=== PATIENT | female | born 1955 | race Hispanic/Latino ===

== ENCOUNTER 2018-05-28 21:29 | Inpatient (IN) | payer MEDICARE, OTHER ==
[~2018-05-28] VITALS: Ht 157.5 cm; Wt 64.0 kg
[2018-05-28] MEDS ORDERED: SODIUM CHLORIDE 0.9% 1000ML 1,000 ML IV STA (21:54)
[2018-05-28] MEDS ORDERED: MEPERIDINE HCL INJ 50 MG/ML INJ IV STA (21:54)
[2018-05-28] MEDS ORDERED: MORPHINE SULFATE INJ 4 MG/ML INJ IV STA (21:57)
[2018-05-28] MEDS ORDERED: ONDANSETRON HCL INJ 2 MG/ML VIAL IV ONE (22:00)
[2018-05-28] MEDS ORDERED: FAMOTIDINE 20 MG/2 ML VIAL IV ONE (22:00)
--- NOTE | 2018-05-28 23:38 | Diagnostic Imaging Report ---
EXAM: CT Abdomen and Pelvis WITH contrast INDICATION: Abdominal pain, nausea and vomiting since this morning COMPARISON: None. TECHNIQUE: Abdomen and pelvis were scanned utilizing a multidetector helical scanner from the lung base to the pubic symphysis after administration of IV contrast. Coronal and sagittal reformations were obtained. Routine protocol was performed. Scan was performed when during portal venous phase. IV CONTRAST: 100 mL of Isovue-370 ORAL CONTRAST: Water RADIATION DOSE: Total DLP: 02/23/2030 mGy*cm Estimated effective dose: (DLP x 0.015 x size factor) mSv COMPLICATIONS: None FINDINGS: LINES and TUBES: None. LOWER THORAX: Unremarkable HEPATOBILIARY: The liver is diffuse hypodense compared to the spleen, consistent with diffuse hepatic diffuse hepatic steatosis. There are a few scattered hypodensities in the liver, likely benign cysts measuring between 1.6 and 1.7 cm. There is intra- and extra- hepatic biliary dilation likely post cholecystectomy reservoir effect. GALLBLADDER: There are cholecystectomy clips. SPLEEN: No splenomegaly. PANCREAS: No focal masses or ductal dilatation. ADRENALS: No adrenal nodules KIDNEYS/URETERS: Kidneys enhance symmetrically. No hydronephrosis. Single subcentimeter hypodensity in the inferior pole of the left kidney measuring 7 mm in diameter is indeterminate and most likely represents a simple cyst No stones. GI TRACT: Short segment of small bowel appears severely dilated with fecal loaded density within it measuring 3.2 cm in diameter on series 2, image 65, coronal series 301, image 41 . First transition point is visualized in the left lower abdomen on series 2, image 55 . Second transition point visualized on series 2, image 71. Appendix is normal. PELVIC ORGANS/BLADDER: Unremarkable. LYMPH NODES: No lymphadenopathy. VESSELS: There is mild atherosclerotic disease in the aorta and major arterial branches. PERITONEUM / RETROPERITONEUM: No free air or fluid. BONES: There are mild degenerative changes in the lumbar spine. SOFT TISSUES: There are 2 ventral fat and small bowel containing hernias in the region of the umbilicus. Additionally a left-sided fat-containing Spigelian hernia is present on series 2, image 65. IMPRESSION: 1. Segmental small bowel obstruction in the left lower abdomen. 2. There are 2 transition points and the presence of fecaloid density material within the segment is suspicious for closed loop obstruction. Signed by: Dr. Bobby Mas M.D. on 05/28/2018 11:34 PM
[2018-05-28] MEDS ORDERED: PROMETHAZINE HCL (IM) 25 MG/ML VIAL IV PRN (23:45)
[2018-05-28] MEDS ORDERED: ONDANSETRON HCL INJ 2 MG/ML VIAL IV PRN (23:45)
[2018-05-28] MEDS ORDERED: AZTREONAM 2GM/NS 100ML 2 GM in AZTREONAM 2GM/NS 100ML 100 ML IV ONE (23:45)
[2018-05-28] MEDS ORDERED: HYDROMORPHONE 1MG/1ML INJ IV PRN (23:45)
[2018-05-29] VITALS (10 sets, daily range): BP systolic 127–158; BP diastolic 58–71
[2018-05-29] MEDS: SODIUM CHLORIDE 0.9% 1000ML 1,000 ML IV SCH ×4 (00:30→23:44)
--- OUTSIDE RECORDS SUMMARY | 2018-05-29 00:40 | XMS REPORT ---
[facility] Address Unknown Phone Unavailable Care Team Providers Care Ram Press Operator Name Role Phone Abigail DEVI Unavailable Unavailable Problems This patient has no known problems. Allergies, Adverse Reactions, Alerts This patient has no known allergies or adverse reactions. Medications This patient has no known medications. Results Test Description Test Time Test Comments Text Results Atomic Results Result Comments CT ABD/PEL WITH CONTRAST-HOPD 2018-05-28 23:24:00 [place] [address] Patient Name: ELPIDIO TATUM MR #: [id number] : 1955 Age/Sex: 63/F Req #: [id number] Adm Physician: Ordered by: OUMAR DEVI MD Report #: [id number] Location: [facility] Room/Bed: Procedure: [id number] HOPD/CT ABD/PEL WITH CONTRAST-HOPD Exam Date: 05/28/18 Exam Time: 2250 REPORT STATUS: Signed EXAM: CT Abdomen and Pelvis WITH contrast INDICATION: Abdominal pain, nausea and vomiting since this morning COMPARISON: None. TECHNIQUE: Abdomen and pelvis were scanned utilizing a multidetector helical scanner from the lung base to the pubic symphysis after administration of IV contrast. Coronal and sagittal reformations were obtained. Routine protocol was performed. Scan was performed when during portal venous phase. IV CONTRAST: 100 mL of Isovue-370 ORAL CONTRAST: Water RADIATION DOSE: Total DLP: 02/23/2030 mGy*cm Estimated effective dose: (DLP x 0.015 x size factor) mSv COMPLICATIONS: None FINDINGS: LINES and TUBES: None. LOWER THORAX: Unremarkable HEPATOBILIARY: The liver is diffuse hypodense compared to the spleen, consistent with diffuse hepatic diffuse hepatic steatosis. There are a few scattered hypodensities in the liver, likely benign cysts measuring between 1.6 and 1.7 cm. There is intra- and extra- hepatic biliary dilation likely post cholecystectomy reservoir effect. GALLBLADDER: There are cholecystectomy clips. SPLEEN: No splenomegaly. PANCREAS: No focal masses or ductal dilatation. ADRENALS: No adrenal nodules KIDNEYS/URETERS: Kidneys enhance symmetrically. No hydronephrosis. Single subcentimeter hypodensity in the inferior pole of the left kidney measuring 7 mm in diameter is indeterminate and most likely represents a simple cyst No stones. GI TRACT: Short segment of small bowel appears severely dilated with fecal loaded density within it measuring 3.2 cm in diameter on series 2, image 65, coronal series 301, image 41 . First transition point is visualized in the left lower abdomen on series 2, image 55 . Second transition point visualized on series 2, image 71. Appendix is normal. PELVIC ORGANS/BLADDER: Unremarkable. LYMPH NODES: No lymphadenopathy. VESSELS: There is mild atherosclerotic disease in the aorta and major arterial branches. PERITONEUM / RETROPERITONEUM: No free air or fluid. BONES: There are mild degenerative changes in the lumbar spine. SOFT TISSUES: There are 2 ventral fat and small bowel containing hernias in the region of the umbilicus. Additionally a left-sided fat- containing Spigelian hernia is present on series 2, image 65. IMPRESSION: 1. Segmental small bowel obstruction in the left lower abdomen. 2. There are 2 transition points and the presence of fecaloid density material within the segment is suspicious for closed loop obstruction. Signed by: Dr. Bobby Mas M.D. on 05/28/2018 11:34 PM Dictated By: BOBBY CROSS MD Transcribed By: BOBBY on 05/28/188 COPY TO: OUMAR DEVI MD
[2018-05-29] MEDS: METRONIDAZOLE 500MG/NS 100ML IV SCH ×5 (00:45→23:41)
[2018-05-29] MEDS ORDERED: ENALAPRILAT IV INJ 1.25 MG/ML VIAL IV PRN (01:00)
[2018-05-29] MEDS: MORPHINE SULFATE INJ 4 MG/ML INJ IV PRN ×2 (01:00→21:05)
[2018-05-29] MEDS ORDERED: DIPHENHYDRAMINE HCL INJ 50 MG/ML VIAL IV PRN (01:00)
[2018-05-29] MEDS ORDERED: HYDRALAZINE HCL 20 MG/ML VIAL IV PRN (01:00)
--- NOTE | 2018-05-29 01:24 | Diagnostic Imaging Report ---
EXAMINATION: CXR 1 W - [facility] INDICATION: NG tube placement COMPARISON: None FINDINGS: TUBES and LINES: NG tube is visualized along the mediastinum with tip overlying the gastric fundus. LUNGS: Lungs are well inflated. Lungs are clear. There is no evidence of pneumonia or pulmonary edema. PLEURA: No pleural effusion or pneumothorax. HEART AND MEDIASTINUM: The cardiomediastinal silhouette is unremarkable. BONES AND SOFT TISSUES: No acute osseous lesion. Soft tissues are unremarkable. UPPER ABDOMEN: No free air under the diaphragm. IMPRESSION: No acute thoracic abnormality. NG tube tip at the gastric fundus, advancement is recommended Signed by: Dr. Bobby Mas M.D. on 05/29/2018 1:21 AM
[2018-05-29] MEDS ORDERED: AZTREONAM 2GM/NS 100ML 2 GM in AZTREONAM 2GM/NS 100ML 100 ML IV ONE (03:00)
[2018-05-29] MEDS ORDERED: ACETAMINOPHEN325 M1 PO (04:02)
[2018-05-29] MEDS ORDERED: VITAMIN D400 UNIT PO (04:02)
[2018-05-29] MEDS ORDERED: OMEGA-3 FISH1000 MG PO (04:02)
[2018-05-29 06:39] LABS: BASOPHILS % 0.2 % (0.0-1.0); EOSINOPHILS % 0.3 % (0.0-6.0); HEMATOCRIT 40.4 % (34.2-44.1); HEMOGLOBIN 13.4 g/dL (12.0-16.0); LYMPHOCYTES # (AUTO) 1.4 (1.0-3.2); MEAN CORPUSCULAR HEMOGLOBIN 30.7 pg (28-32); MEAN CORPUSCULAR HGB CONC 33.2 g/dL (31-35); MEAN CORPUSCULAR VOLUME 92.4 fL (81-99); MONOCYTES # (AUTO) 0.5 (0.2-0.8); MONOCYTES % 5.7 % (4.4-11.3); NEUTROPHILS # (AUTO) 7.4 (2.1-6.9); NEUTROPHILS % 78.5 % (38.7-80.0); PLATELET COUNT 324 x10e3/uL (140-360); RED BLOOD COUNT 4.37 x10e6/uL (3.6-5.1); RED CELL DISTRIBUTION WIDTH 13.3 % (11.7-14.4)
--- NOTE | 2018-05-29 06:45 | Diagnostic Imaging Report ---
EXAM: ABDOMEN 2 VIEW DATE: 05/29/2018 5:00 AM Time stamp on exam: 6: 15 AM INDICATION: Small bowel obstruction COMPARISON: CT of the abdomen and pelvis on 05/28/2018 FINDINGS: LINES/TUBES: NG tube is visualized in good position with tip at the level of the duodenum BOWEL PATTERN: Again, short segment of small bowel appears dilated in the region of the ventral hernia at the level of L5 and S1. SOFT TISSUES: No abnormal calcifications. No mass effect. Surgical clips compatible with prior cholecystectomy LUNG BASES: Lung bases are clear BONES: No acute findings. IMPRESSION: 1. NG tube in good position. 2. Mid abdominal distention of short segment of the small bowel remains concerning for closed loop obstruction as mentioned in recent CT of the abdomen and pelvis Signed by: Dr. Bobby Mas M.D. on 05/29/2018 6:40 AM
[2018-05-29 06:54] LABS: ANION GAP 16.1 mmol/L (8-16); BLOOD UREA NITROGEN 12 mg/dL (7-26); BUN/CREATININE RATIO 17 (6-25); CALCIUM 9.1 mg/dL (8.4-10.2); CARBON DIOXIDE 22 mmol/L (22-29); CHLORIDE 108 mmol/L (98-107); CREATININE, SERUM 0.69 mg/dL (0.57-1.11); EST GLOMERULAR FILTRATION RATE > 60 ML/MIN (60-); GLUCOSE 120 mg/dL (74-118); POTASSIUM 4.1 mmol/L (3.5-5.1); SODIUM 142 mmol/L (136-145)
[2018-05-29] MEDS: AZTREONAM 2GM/NS 100ML 2 GM in AZTREONAM 2GM/NS 100ML 100 ML IV SCH (11:59)
[2018-05-29] MEDS: FAMOTIDINE 20 MG/2 ML VIAL IV SCH ×2 (13:15→17:47)
--- NOTE | 2018-05-29 15:01 | History and Physical ---
CHIEF COMPLAINT: Nausea and vomiting. HISTORY OF PRESENT ILLNESS: This is a 63-year-old woman who presents to [facility] emergency room with sudden onset of abdominal pain accompanied by nausea and vomiting. In the emergency room, patient was found to have a white blood cell count of 13,000 with 88% segmented neutrophils. Patient's liver enzymes and electrolytes were all within normal limits. The patient underwent a CT of abdomen and pelvis with contrast in the emergency room that revealed segmental small bowel obstruction in the left lower abdomen. The CT of the abdomen and pelvis actually revealed two transition points and the presence of fecaloid density material within the segment suspicious for close loop obstruction. Patient is admitted for further evaluation and treatment. REVIEW OF SYSTEMS GENERAL: Weight is stable. No fever or chills. HEENT: No headache or double vision. CARDIOVASCULAR: No chest pain or cough. GI: Intense abdominal pain accompanied by nausea and vomiting occurring suddenly yesterday. No diarrhea. No constipation. : No UTI symptoms. NEUROMUSCULAR: No limb weakness or numbness. ALLERGIES: PENICILLIN. PAST MEDICAL HISTORY 1. Prediabetes. 2. Hypertensive heart disease. 3. History of multiple abdominal surgeries. HOME MEDICATIONS 1. Acetaminophen 500 mg every 6 hours p.r.n. for pain. 2. Vitamin D3 400 units daily. 3. [place] 3 fish oil 1000 mg daily. FAMILY HISTORY: Mother with hypertension. Father with type 2 diabetes mellitus and hypothyroidism. SURGICAL HISTORY 1. Colonic resection with diverted colotomy placement in 2008. 2. Colostomy reversal in 2010. 3. Breast lesion resection twice (both benign). 4. Laparoscopic cholecystectomy. 5. Bilateral oophorectomy resulting in colonic perforation in 2008 (this incident resulted in colonic resection and colostomy placement). SOCIAL HISTORY: The woman is single. She lives with her sister and [id number]. No history of tobacco or alcohol use. She is unemployed. PHYSICAL EXAMINATION GENERAL: She is awake, alert, fully oriented and very pleasant upon exam. Family members at bedside. VITALS: Blood pressure is 144/56, pulse 72, respiratory rate 18, height is 5 feet 1 inch, weight 138 pounds, BMI is 26. Temperature was 98.1. INTEGUMENT: Skin is warm and dry. No pallor or diaphoresis appreciated. HEENT: Moist mucous membranes. The patient has nasogastric tube in place. CARDIOVASCULAR: Regular rate and rhythm. LUNGS: No rales. No rhonchi or wheezing. ABDOMEN: Soft, nontender. She has evidence of a large exploratory laparotomy scar, which was well healed. She has a well healed scar in her left lower quadrant area, which was the site of her colostomy bag. Patient has hypoactive bowel sounds. No rebound or guarding. No masses appreciated. EXTREMITIES: No edema or deformity. NEUROLOGIC: Intact. IMPRESSION 1. Small bowel obstruction. 2. History of multiple abdominal surgeries. 3. Intra-abdominal adhesions, likely. 4. Hypertension. 5. Prediabetes. RECOMMENDATIONS 1. We have ordered daily abdominal x-rays (flat and upright). 2. Gentle intravenous fluids. 3. Follow electrolytes and white blood cell count. 4. Intravenous antibiotics. 5. Acute nasogastric tube in place. 6. Nothing by mouth. 7. We will follow up general surgery's recommendation. 8. Total time spent 50 minutes in the care of the patient. Job#: [id number] ELENITA WOLFE
[2018-05-30] VITALS (7 sets, daily range): BP systolic 122–149; BP diastolic 60–67
[2018-05-30] MEDS: AZTREONAM 2GM/NS 100ML 2 GM in AZTREONAM 2GM/NS 100ML 100 ML IV SCH ×2 (01:10→13:29)
[2018-05-30 05:38] LABS: BASOPHILS % 0.5 % (0.0-1.0); EOSINOPHILS # (AUTO) 0.1 (0.0-0.4); EOSINOPHILS % 1.3 % (0.0-6.0); HEMATOCRIT 37.7 % (34.2-44.1); HEMOGLOBIN 12.4 g/dL (12.0-16.0); LYMPHOCYTES # (AUTO) 1.6 (1.0-3.2); LYMPHOCYTES % 25.6 % (18.0-39.1); MEAN CORPUSCULAR HEMOGLOBIN 30.7 pg (28-32); MEAN CORPUSCULAR HGB CONC 32.9 g/dL (31-35); MEAN CORPUSCULAR VOLUME 93.3 fL (81-99); MONOCYTES # (AUTO) 0.5 (0.2-0.8); MONOCYTES % 8.4 % (4.4-11.3); PLATELET COUNT 277 x10e3/uL (140-360); RED BLOOD COUNT 4.04 x10e6/uL (3.6-5.1); RED CELL DISTRIBUTION WIDTH 13.3 % (11.7-14.4)
[2018-05-30 05:56] LABS: ALANINE AMINOTRANSFERASE 16 IU/L (0-55); ALBUMIN 3.3 g/dL (3.5-5.0); ALBUMIN/GLOBULIN RATIO 1.1 (0.8-2.0); ALKALINE PHOSPHATASE 48 IU/L (40-150); ANION GAP 14.6 mmol/L (8-16); BLOOD UREA NITROGEN 12 mg/dL (7-26); BUN/CREATININE RATIO 15 (6-25); CALCIUM 8.7 mg/dL (8.4-10.2); CARBON DIOXIDE 23 mmol/L (22-29); CHLORIDE 107 mmol/L (98-107); CREATININE, SERUM 0.79 mg/dL (0.57-1.11); EST GLOMERULAR FILTRATION RATE > 60 ML/MIN (60-); GLUCOSE 100 mg/dL (74-118); POTASSIUM 3.6 mmol/L (3.5-5.1); SODIUM 141 mmol/L (136-145)
[2018-05-30] MEDS: METRONIDAZOLE 500MG/NS 100ML IV SCH ×3 (06:31→17:31)
--- NOTE | 2018-05-30 06:36 | Diagnostic Imaging Report ---
EXAM: ABDOMEN 2 VIEW DATE: 05/30/2018 7:00 AM Time stamp on exam: 0608 AM INDICATION: Small bowel obstruction COMPARISON: KUB on 05/29/[address] of the abdomen and pelvis on 05/28/2018 FINDINGS: LINES/TUBES: NG tube remains in good position at the level of the duodenum BOWEL PATTERN: No evidence for obstruction. SOFT TISSUES: No abnormal calcifications. No mass effect. LUNG BASES: Lung bases are clear BONES: No acute findings. IMPRESSION: Complete resolution of small bowel distention at the mid abdomen Signed by: Dr. Bobby Mas M.D. on 05/30/2018 6:32 AM
[2018-05-30] MEDS: FAMOTIDINE 20 MG/2 ML VIAL IV SCH ×2 (09:24→17:30)
[2018-05-30] MEDS: SODIUM CHLORIDE 0.9% 1000ML 1,000 ML IV SCH ×2 (09:25→16:30)
[2018-05-31] VITALS (7 sets, daily range): BP systolic 114–125; BP diastolic 55–60
[2018-05-31] MEDS: AZTREONAM 2GM/NS 100ML 2 GM in AZTREONAM 2GM/NS 100ML 100 ML IV SCH ×2 (00:15→13:00)
[2018-05-31] MEDS: METRONIDAZOLE 500MG/NS 100ML IV SCH ×4 (00:24→17:15)
[2018-05-31] MEDS: SODIUM CHLORIDE 0.9% 1000ML 1,000 ML IV SCH (00:24)
[2018-05-31 05:51] LABS: BASOPHILS % 0.4 % (0.0-1.0); EOSINOPHILS # (AUTO) 0.1 (0.0-0.4); EOSINOPHILS % 0.8 % (0.0-6.0); HEMATOCRIT 38.1 % (34.2-44.1); HEMOGLOBIN 12.4 g/dL (12.0-16.0); LYMPHOCYTES # (AUTO) 1.7 (1.0-3.2); LYMPHOCYTES % 23.5 % (18.0-39.1); MEAN CORPUSCULAR HEMOGLOBIN 30.2 pg (28-32); MEAN CORPUSCULAR HGB CONC 32.5 g/dL (31-35); MEAN CORPUSCULAR VOLUME 92.7 fL (81-99); MONOCYTES # (AUTO) 0.6 (0.2-0.8); MONOCYTES % 7.8 % (4.4-11.3); NEUTROPHILS # (AUTO) 4.9 (2.1-6.9); NEUTROPHILS % 67.2 % (38.7-80.0); PLATELET COUNT 293 x10e3/uL (140-360); RED BLOOD COUNT 4.11 x10e6/uL (3.6-5.1); RED CELL DISTRIBUTION WIDTH 12.9 % (11.7-14.4)
[2018-05-31 06:29] LABS: ALANINE AMINOTRANSFERASE 17 IU/L (0-55); ALBUMIN 3.3 g/dL (3.5-5.0); ALBUMIN/GLOBULIN RATIO 1.1 (0.8-2.0); ALKALINE PHOSPHATASE 46 IU/L (40-150); ANION GAP 12.4 mmol/L (8-16); BLOOD UREA NITROGEN 11 mg/dL (7-26); BUN/CREATININE RATIO 17 (6-25); CALCIUM 8.8 mg/dL (8.4-10.2); CARBON DIOXIDE 22 mmol/L (22-29); CHLORIDE 105 mmol/L (98-107); CREATININE, SERUM 0.66 mg/dL (0.57-1.11); EST GLOMERULAR FILTRATION RATE > 60 ML/MIN (60-); GLUCOSE 77 mg/dL (74-118); POTASSIUM 3.4 mmol/L (3.5-5.1); SODIUM 136 mmol/L (136-145)
--- NOTE | 2018-05-31 06:40 | Diagnostic Imaging Report ---
EXAM: ABDOMEN 2 VIEW DATE: 05/31/2018 7:00 AM Time stamp on exam: 0608 AM INDICATION: Resolving small bowel obstruction COMPARISON: KUB on 05/30 an 05/29/[address] of the abdomen and pelvis on 05/28/2018 FINDINGS: LINES/TUBES: Removal of NG tube BOWEL PATTERN: No dilated loops of small or large bowel. SOFT TISSUES: Cholecystectomy clips LUNG BASES/BONES: No acute findings. IMPRESSION: Nonobstructive bowel gas pattern Signed by: Dr Lizbet Walker MD on 05/31/2018 6:37 AM
[2018-05-31] MEDS: FAMOTIDINE 20 MG/2 ML VIAL IV SCH ×2 (08:18→17:15)
[2018-05-31] MEDS: KCL 20MEQ/.9 SOD CHL 1,000 ML IV SCH (10:30)
[2018-06-01] VITALS: BP 96/46
[2018-06-01] MEDS: METRONIDAZOLE 500MG/NS 100ML IV SCH ×2 (00:10→05:39)
[2018-06-01] MEDS: AZTREONAM 2GM/NS 100ML 2 GM in AZTREONAM 2GM/NS 100ML 100 ML IV SCH (00:12)
[2018-06-01] MEDS: KCL 20MEQ/.9 SOD CHL 1,000 ML IV SCH ×2 (01:18→05:39)
[2018-06-01 04:00] VITALS: BP 95/43
[2018-06-01 06:21] LABS: BASOPHILS % 0.7 % (0.0-1.0); EOSINOPHILS # (AUTO) 0.2 (0.0-0.4); EOSINOPHILS % 2.7 % (0.0-6.0); HEMATOCRIT 35.9 % (34.2-44.1); HEMOGLOBIN 11.9 g/dL (12.0-16.0); LYMPHOCYTES # (AUTO) 1.7 (1.0-3.2); LYMPHOCYTES % 30.1 % (18.0-39.1); MEAN CORPUSCULAR HEMOGLOBIN 30.3 pg (28-32); MEAN CORPUSCULAR HGB CONC 33.1 g/dL (31-35); MEAN CORPUSCULAR VOLUME 91.3 fL (81-99); MONOCYTES # (AUTO) 0.6 (0.2-0.8); MONOCYTES % 9.9 % (4.4-11.3); NEUTROPHILS # (AUTO) 3.2 (2.1-6.9); NEUTROPHILS % 56.4 % (38.7-80.0); PLATELET COUNT 299 x10e3/uL (140-360); RED BLOOD COUNT 3.93 x10e6/uL (3.6-5.1); RED CELL DISTRIBUTION WIDTH 13.1 % (11.7-14.4)
[2018-06-01 07:46] LABS: BLOOD UREA NITROGEN 7 mg/dL (7-26); BUN/CREATININE RATIO 11 (6-25); CALCIUM 8.8 mg/dL (8.4-10.2); CARBON DIOXIDE 25 mmol/L (22-29); CHLORIDE 108 mmol/L (98-107); CREATININE, SERUM 0.64 mg/dL (0.57-1.11); EST GLOMERULAR FILTRATION RATE > 60 ML/MIN (60-); GLUCOSE 106 mg/dL (74-118); SODIUM 140 mmol/L (136-145)
[2018-06-01 08:01] VITALS: BP 110/53
[2018-06-01 08:34] VITALS: BP 125/60
[2018-06-01 08:39] VITALS: BP 125/60
[2018-06-01] MEDS: FAMOTIDINE 20 MG/2 ML VIAL IV SCH (09:33)
--- NOTE | 2018-06-01 09:59 | Discharge Summary ---
ADMIT DIAGNOSES 1. Small-bowel obstruction, possible closed loop obstruction. 2. Prediabetes. DISCHARGE DIAGNOSES 1. Small-bowel obstruction, resolved. 2. Prediabetes. HOSPITAL COURSE: This is a 63-year-old woman that was admitted to [facility] with a diagnosis of small-bowel obstruction with possible closed loop obstruction between 2 transition points. The patient's hospitalization was unremarkable. The patient's small-bowel obstruction resolved with conservative measures, which included nasogastric tube placement, intravenous fluids, replacement of electrolytes, and bowel rest. During this hospitalization, the patient was found to have an LDL cholesterol of 72 mg/dL. The patient's hemoglobin A1c was 6.1%. On the day of discharge, the patient's white blood cell count was 5600 with 56% segmented neutrophils. On admission, the patient's white blood cell count was 9300 with 78% neutrophils. The patient's hospitalization was unremarkable. The patient's condition on discharge was stable. The patient was tolerating a regular diet on discharge. The patient had daily abdominal x-rays during this hospitalization, which revealed complete resolution of the small-bowel obstruction. The patient's condition on discharge was stable. DISCHARGE MEDICATIONS 1. Vitamin D3 400 units daily. 2. Fosters-3 fish oil 1000 mg daily. 3. Acetaminophen 500 mg every 6 hours p.r.n. pain. FOLLOWUP INSTRUCTIONS: The patient will follow up with her primary care physician, namely myself, Dr. John Bal, within the next 10-14 days. The patient was told that she could resume a regular diet. JOHN BAL MD Job#: [id number] RI cc:MANUEL PRESTON MD
== END 2018-06-01 10:04 | disposition home or self-care (01) | DRG 390 ==
LOC: FSED 21:29 → ERHOLD 05-29 00:35 → MED/SURG 05-29 02:28
PROVIDERS: ADMIT Internal Medicine; ATTEND Internal Medicine
DX: K56.52 Intestinal adhesions [bands] with complete obstruction (principal); R73.03 Prediabetes; I11.9 Hypertensive heart disease without heart failure; E87.6 Hypokalemia
CPT/HCPCS: 36415; 71045; 74019; 74177; 80048; 80053; 80061; 80076; 81003; 83036; 83690; 85025; 96367; 96376; 99284; J2270; J2405; J7030

== ENCOUNTER → 2018-09-09 | Day surgery (SDC) | payer MEDICARE, OTHER ==
[2018-09-06 09:20] LABS: BASOPHILS % 0.6 % (0.0-1.0); EOSINOPHILS % 0.8 % (0.0-6.0); HEMATOCRIT 40.3 % (34.2-44.1); HEMOGLOBIN 13.4 g/dL (12.0-16.0); LYMPHOCYTES # (AUTO) 1.9 (1.0-3.2); LYMPHOCYTES % 36.5 % (18.0-39.1); MEAN CORPUSCULAR HEMOGLOBIN 30.2 pg (28-32); MEAN CORPUSCULAR HGB CONC 33.3 g/dL (31-35); MONOCYTES # (AUTO) 0.4 (0.2-0.8); MONOCYTES % 6.6 % (4.4-11.3); NEUTROPHILS # (AUTO) 2.9 (2.1-6.9); NEUTROPHILS % 55.3 % (38.7-80.0); PLATELET COUNT 304 x10e3/uL (140-360); RED BLOOD COUNT 4.43 x10e6/uL (3.6-5.1); RED CELL DISTRIBUTION WIDTH 12.7 % (11.7-14.4)
[~2018-09-09] MED LIST: ACETAMINOPHEN325 M1 PO; FENTANYL CITRATE/PF 100MCG/2 ML INJ ONE; LIDOCAINE HCL 2% LOCAL INJ 5 ML SDV VIAL INJ ONE; MIDAZOLAM HCL 2 MG/2 ML VIAL ONE; OMEGA-3 FISH1000 MG PO; PROPOFOL IV EMULSION 10 MG/ML 50 ML VIAL ONE; VITAMIN D400 UNIT PO
[2018-09-09 11:48] VITALS: BP 124/68
--- NOTE | 2018-09-09 12:58 | Operative Report ---
DATE OF PROCEDURE: September 09, 2018 REFERRING PHYSICIAN: Dr. John Bal. PROCEDURES PERFORMED: 1. Esophagogastroduodenoscopy with biopsies. 2. Colonoscopy. INDICATIONS FOR ESOPHAGOGASTRODUODENOSCOPY: Dyspepsia. INDICATIONS FOR COLONOSCOPY: Colorectal cancer screening. MEDICATION: Patient was done under MAC. Please see anesthesiologist's note. PROCEDURE: With the patient in the left lateral decubitus position, the flexible fiberoptic Olympus gastroscope was introduced into the esophagus under direct visualization without any difficulty. There was some patchy erythema noted in the distal esophagus. The scope was then advanced with ease into the stomach. Mucosa overlying the antrum and the body revealed some patchy erythema and mild to moderate edema, and biopsies were obtained and sent to stain for H. pylori. Pylorus appeared to be of normal contour and shape, was intubated with ease, and the scope was advanced all the way to the 2nd portion of the duodenum. Biopsies were obtained from the proximal 2nd portion and the duodenal bulb to rule out sprue. The scope was then withdrawn back into the stomach and retroflexed, and mucosa overlying the fundus and the cardia appeared to be within normal limits. The scope was then straightened out. The stomach was decompressed. The scope was subsequently withdrawn. Patient tolerated the procedure well. IMPRESSION: 1. Distal esophagitis. 2. Gastritis biopsied. Biopsies sent to stain for H. pylori. 3. Rule out sprue. PLAN: Follow up histology. Initiate Protonix 40 mg 1 p.o. q.a.m. a.c. Patient was then turned around and after adequate lubrication of the anal canal, a flexible fiberoptic Olympus colonoscope was inserted into the rectum with ease and advanced all the way to the cecum. It was then withdrawn slowly. Mucosa overlying the cecum, ascending colon, transverse colon appeared to be within normal limits. Diverticular disease was noted to involve the distal descending and the sigmoid colon. The anastomosis was noted at approximately 10 cm from the anal verge, and it was intact. The scope was then retroflexed into the distal rectum and small internal hemorrhoids were noted, none of which was actively bleeding. The scope was then straightened out. The scope was subsequently withdrawn. Patient tolerated procedure well. IMPRESSION: 1. Diverticulosis. 2. Anastomosis at 10 cm from anal verge, intact. 3. Internal hemorrhoids, none actively bleeding. PLAN: Initiate high-fiber low-fat diet. Initiate high-fiber supplement. Patient might benefit from a followup colonoscopy in 10 years. Job#: [id number] EV cc:JOHN BAL MD
== END | disposition home or self-care (01) ==
LOC: OR 08:10
PROVIDERS: ATTEND Internal Medicine Gastroenterology
DX: Z12.11 Encounter for screening for malignant neoplasm of colon (principal); K29.70 Gastritis, unspecified, without bleeding; K21.9 Gastro-esophageal reflux disease without esophagitis; K20.9 Esophagitis, unspecified; K57.30 Diverticulosis of large intestine without perforation or abscess without bleeding; K44.9 Diaphragmatic hernia without obstruction or gangrene; K91.858 Other complications of intestinal pouch; Z98.0 Intestinal bypass and anastomosis status; K64.8 Other hemorrhoids; Z01.810 Encounter for preprocedural cardiovascular examination; Z01.812 Encounter for preprocedural laboratory examination; Z88.0 Allergy status to penicillin; Z88.2 Allergy status to sulfonamides; Z68.27 Body mass index [BMI] 27.0-27.9, adult; Z86.12 Personal history of poliomyelitis
CPT/HCPCS: 43239; G0121; 36415; 45378; 85025; 93005; J2001; J2250

== ENCOUNTER 2018-09-25 16:12 | Inpatient (IN) | payer MEDICARE, OTHER ==
[~2018-09-25] VITALS: Ht 160 cm; Wt 63.2 kg
[~2018-09-25 16:12] MED LIST changes: -FENTANYL CITRATE/PF 100MCG/2 ML INJ ONE; -LIDOCAINE HCL 2% LOCAL INJ 5 ML SDV VIAL INJ ONE; -MIDAZOLAM HCL 2 MG/2 ML VIAL ONE; -PROPOFOL IV EMULSION 10 MG/ML 50 ML VIAL ONE
[2018-09-25] MEDS ORDERED: ONDANSETRON HCL INJ 2MG/ML 2ML 2 MG/ML VIAL IV STA (16:45)
[2018-09-25] MEDS ORDERED: KETOROLAC TROMETHAMINE 30 MG/ML VIAL IV STA (16:46)
[2018-09-25] MEDS ORDERED: FAMOTIDINE 20 MG/2 ML VIAL IV STA (16:46)
[2018-09-25] MEDS ORDERED: SODIUM CHLORIDE 0.9% 1000ML 1,000 ML IV SCH (17:00)
[2018-09-25] MEDS ORDERED: SODIUM CHLORIDE 0.9% 1000ML 1,000 ML IV ONE (17:00)
--- NOTE | 2018-09-25 18:07 | NUR ---
REPORT TO REUBEN URRUTIA
--- NOTE | 2018-09-25 19:46 | Diagnostic Imaging Report ---
EXAM: CT Abdomen and Pelvis WITH contrast INDICATION: Abdominal pain ^[id number] ^1800 COMPARISON: None. TECHNIQUE: Abdomen and pelvis were scanned utilizing a multidetector helical scanner from the lung base to the pubic symphysis after administration of IV contrast. Coronal and sagittal reformations were obtained. Routine protocol was performed. Scan was performed when during portal venous phase. IV CONTRAST: 100 mL of Isovue-370 ORAL CONTRAST: Water COMPLICATIONS: None RADIATION DOSE: Total DLP: 749.2 mGy*cm Estimated effective dose: (DLP x 0.015 x size factor) mSv Dose modulation, iterative reconstruction, and/or weight based adjustment of the mA/kV was utilized to reduce the radiation dose to as low as reasonably achievable. FINDINGS: LINES and TUBES: None. LOWER THORAX: Unremarkable HEPATOBILIARY: Hepatic cyst measure 2.1 cm and 1.6 cm. No biliary ductal dilation. GALLBLADDER: Absent. SPLEEN: No splenomegaly. PANCREAS: No focal masses or ductal dilatation. ADRENALS: No adrenal nodules KIDNEYS/URETERS: Kidneys enhance symmetrically. No hydronephrosis. Left inferior pole 0.6 cm cyst. No stones. GI TRACT: Small bowel obstruction related to a lower abdominal ventral hernia. Hernia sac measures 8 x 4.5 x 6.9 cm with 3 x 3.1 cm neck and contains fluid along the inferior margin. A minimally distended bowel loop measuring 2.5 cm in diameter (series 2 image 70) has two transition points at the ventral hernia neck, suspicious for an additional developing closed loop obstruction. More superiorly, a second small bowel containing hernia contains the upstream dilated bowel loops. This hernia measures 6.7 x 4.1 x 7 cm with 4.8 x 5.4 cm neck. Left lateral abdominal Spigelian fat containing hernia. Colonic diverticulosis without diverticulitis. Rectosigmoid anastomotic sutures. Appendix is normal. PELVIC ORGANS/BLADDER: Endometrium thickened expected for postmenopausal state measuring 9 mm in thickness. LYMPH NODES: No lymphadenopathy. VESSELS: Unremarkable. PERITONEUM / RETROPERITONEUM: No free air. Small amount of fluid within the inferior ventral hernia sac. BONES: There are degenerative changes in the lumbar spine. SOFT TISSUES: Lower abdominal ventral hernia with IMPRESSION: Mild small bowel obstruction with transition point at a ventral hernia. A minimally distended bowel loop has two transition points at the ventral hernia neck, suspicious for a developing closed loop obstruction. Additional small bowel containing and fat containing ventral hernias. Endometrial thickness, greater than expected for postmenopausal state. Recommend nonemergent pelvic ultrasound for further evaluation. Signed by: DR. Blane Lauren MD on 09/25/2018 7:42 PM
[2018-09-25] MEDS: D5.45%NS/KCL 20MEQ 1,000 ML IV SCH (21:02)
[2018-09-25] MEDS ORDERED: ONDANSETRON HCL INJ 2MG/ML 2ML 2 MG/ML VIAL IV PRN (21:15)
--- NOTE | 2018-09-25 22:01 | NUR ---
SURYA WALSH RN, TAKING PATIENT, NOTIFIED OF NGT PLACEMENT NEEDING TO BE VERIFIED VIA XRAY, HEARD IN ABDOMEN BUT SOUNDING DISTAL, VERIFY PLACEMENT BEFORE USING BC MAY NEED TO ADVANCE
--- NOTE | 2018-09-25 22:05 | NUR ---
REPORT RECEIVED FROM REUBEN THAT NGT WAS INSERTED BUT MET RESISTANCE AND WHEN CHECKED FOR PLACEMENT SOUND WAS DISTAL. SUGGESTING FOR X RAY TO VERIFY PLACEMENT BEFORE USE. X-RAY WAS NOT DONE FROM THE E.R.
--- NOTE | 2018-09-25 22:14 | NUR ---
RECEIVED PATIENT FROM ER VIA STRETCHER ALERT AND ORIENTED. NGT TUBE TO LEFT NOSTRIL. MADE COMFORTABLE IN BED. CALL LIGHT IN REACH.
--- NOTE | 2018-09-25 22:30 | NUR ---
PAGELandon BAL AND DR. Martha PRESTON.
[2018-09-25 22:35] VITALS: BP 174/77
--- NOTE | 2018-09-25 22:45 | NUR ---
CALL RECEIVED FROM DR. PRESTON NOTIFIED OF THE CONSULTATION. STATED HE IS AWARE OF THE CONSULTATION AND WANTS NGT IN PLACE. NOTIFIED MD THAT NGT IS ALREADY IN PLACE. DR. PRESTON STATED NO NEED FOR X RAY TO VERIFY THE PLACEMENT OF THE NGT TUBE. 2 NURSES CAN VERIFY PLACEMENT OF THE TUBE. WILL VERIFY WITH CHARGE NURSE.
--- NOTE | 2018-09-25 23:20 | NUR ---
NO CALL BACK RECEIVED FROM DR. Christine LUND COVERING FOR DR. BAL. NGT PLACEMENT VERIFIED WITH CHARGE NURSE. NG TUBE IS IN PLACE PER AUSCULTATION.
[2018-09-26] VITALS (9 sets, daily range): BP systolic 120–174; BP diastolic 58–77
--- NOTE | 2018-09-26 00:42 | Diagnostic Imaging Report ---
EXAM: ABDOMEN-1VIEW (KUB) DATE: 09/25/2018 11:57 PM INDICATION: NG tube placement COMPARISON: CT abdomen and pelvis 09/25/2018 FINDINGS: LINES/TUBES: Nasogastric tube tip and sidehole project over the gastric body. BOWEL PATTERN: Mildly dilated small bowel loop in the left abdomen measuring 3.4 cm in diameter in keeping with mild obstruction. SOFT TISSUES: No abnormal calcifications. No mass effect. Also cystectomy clips. LUNG BASES: No consolidations. BONES: No acute findings. IMPRESSION: Interval placement of NG tube with tip overlying the gastric body. Signed by: DR. Blane Lauren MD on 09/26/2018 12:39 AM
[2018-09-26] MEDS: D5.45%NS/KCL 20MEQ 1,000 ML IV SCH ×3 (05:10→16:38)
[2018-09-26 06:04] LABS: BASOPHILS % 0.5 % (0.0-1.0); EOSINOPHILS # (AUTO) 0.1 (0.0-0.4); EOSINOPHILS % 1.2 % (0.0-6.0); HEMATOCRIT 38.2 % (34.2-44.1); HEMOGLOBIN 12.8 g/dL (12.0-16.0); LYMPHOCYTES # (AUTO) 1.8 (1.0-3.2); LYMPHOCYTES % 29.4 % (18.0-39.1); MEAN CORPUSCULAR HEMOGLOBIN 29.9 pg (28-32); MEAN CORPUSCULAR HGB CONC 33.5 g/dL (31-35); MEAN CORPUSCULAR VOLUME 89.3 fL (81-99); MONOCYTES # (AUTO) 0.5 (0.2-0.8); MONOCYTES % 8.3 % (4.4-11.3); NEUTROPHILS # (AUTO) 3.7 (2.1-6.9); NEUTROPHILS % 60.4 % (38.7-80.0); PLATELET COUNT 307 x10e3/uL (140-360); RED BLOOD COUNT 4.28 x10e6/uL (3.6-5.1)
--- NOTE | 2018-09-26 06:35 | NUR ---
SPOKE WITH DR. Christine LUND COVERING FOR DR. BAL. NEW ORDERS RECEIVED.
[2018-09-26 06:40] LABS: ALANINE AMINOTRANSFERASE 12 IU/L (0-55); ALBUMIN 3.4 g/dL (3.5-5.0); ALBUMIN/GLOBULIN RATIO 1.2 (0.8-2.0); ALKALINE PHOSPHATASE 48 IU/L (40-150); ANION GAP 11.2 mmol/L (8-16); BLOOD UREA NITROGEN 7 mg/dL (7-26); BUN/CREATININE RATIO 11 (6-25); CALCIUM 8.8 mg/dL (8.4-10.2); CARBON DIOXIDE 26 mmol/L (22-29); CHLORIDE 107 mmol/L (98-107); CREATININE, SERUM 0.65 mg/dL (0.57-1.11); EST GLOMERULAR FILTRATION RATE > 60 ML/MIN (60-); GLUCOSE 118 mg/dL (74-118); POTASSIUM 4.2 mmol/L (3.5-5.1); SODIUM 140 mmol/L (136-145)
[2018-09-26] MEDS ORDERED: HYDRALAZINE HCL 20 MG/ML VIAL IV PRN (07:15)
--- NOTE | 2018-09-26 07:31 | NUR ---
REPORT GIVEN TO ONCOMING NURSE.
[2018-09-26] MEDS: PANTOPRAZOLE 40 MG 10ML VIAL IV SCH (09:17)
[2018-09-26] MEDS: ACETAMINOPHEN 1000 MG/100 ML IV PRN ×2 (09:18→19:33)
--- NOTE | 2018-09-26 09:25 | Consultation ---
DATE OF CONSULTATION: September 26, 2018 REASON FOR CONSULTATION: Small-bowel obstruction. The patient is a pleasant 63-year-old female who has a history of multiple abdominal surgeries in the past, including Greyson's procedure, colostomy closure, cholecystectomy, bilateral oophorectomy, and hysterectomy admitted complaining of midabdominal pain that developed yesterday. The pain developed after eating at home. There was no diarrhea. The patient was initially seen in the [facility] emergency room where she was admitted for further care. She had an NG tube placement. Currently, the patient is feeling better. She is passing gas. The CT scan performed upon admission showed a small-bowel obstruction and a ventral hernia. PAST MEDICAL HISTORY: Essentially unremarkable except for prediabetes and high blood pressure. ALLERGIES: SHE IS ALLERGIC TO PENICILLIN. REVIEW OF SYSTEMS: The patient at this point feels well. She denies any abdominal pain. She is passing flatus. PHYSICAL EXAMINATION GENERAL: Reveals a 63-year-old female whose main complaint is pain in the left side of the face, which she had previous placement of an NG tube last night at the [facility] emergency room. HEENT: Unremarkable. LUNGS: Clear. HEART: Reveals sinus rhythm. ABDOMEN: Soft and nontender. It is protuberant. There is a midline scar in the lower abdomen. EXTREMITIES: Reveals no clubbing, cyanosis or edema. Admission laboratory revealed normal white count with normal electrolytes. ASSESSMENT: Small-bowel obstruction with ventral hernia without any evidence of ischemia. PLAN: At this point, the patient is responding well to conservative treatment. She will continue to be treated with nasogastric tube decompression, IV fluids and serial x-rays. At this point, there is no need for any emergency surgical intervention.However becuase of the recurrentnatur of the obstruction and risk for volvulus she will be schedulled for repair of ventrla hernia during this hospitaliztion. Thank you very much for the courtesy of this consultation. Job#: [id number] RAMÓN WOLFE
--- NOTE | 2018-09-26 09:53 | Diagnostic Imaging Report ---
Exam: Abdominal film Clinical History: Small bowel obstruction Comparison: KUB earlier 07/26/2019 DISCUSSION: Enteric tube tip is unchanged, projecting over the gastric body. No dilated, air-filled loops of bowel or lenore pneumoperitoneum on the upright radiograph. No mass effect or organomegaly. Regional skeletal structures are intact. IMPRESSION: Stable appearance of enteric tube, with the tip projecting over the gastric body. Small bowel dilatation has slightly improved relative to 0014 hours. Signed by: Dr. Mario Costa M.D. on 09/26/2018 9:49 AM
--- NOTE | 2018-09-26 10:30 | History and Physical ---
CHIEF COMPLAINT: Abdominal pain and nausea. HISTORY OF PRESENT ILLNESS: This is a 63-year-old woman who presents to [facility] emergency room with the sudden onset of nonradiating midepigastric pain with intense nausea, but no vomiting. The patient denied any diarrhea or constipation. The patient states in fact yesterday she had multiple bowel movements without any difficulty. The patient denied any melena or hematochezia. The patient unfortunately has a history of recurrent small-bowel obstruction. She also has a history of ventral hernia. In the emergency room, the patient underwent a CT of the abdomen and pelvis with intravenous contrast that revealed mild small-bowel obstruction with transition point at the ventral hernia. The CT of the abdomen and pelvis revealed a minimally distended bowel loop with 2 transition points at the ventral hernia neck suspicious for developing closed loop obstruction. The patient had a repeat abdominal x-ray this morning. According to her surgeon, namely Dr. Fredy Montes, the small-bowel obstruction was resolving. The patient denies any nausea or abdominal pain today. The patient states she also moved her bowels today. In the emergency room, the patient had blood work done and complete blood count and comprehensive metabolic profile were all within normal limits. The patient was actually admitted with the exact same diagnosis in May of 2018. The patient states that 2 weeks ago she had undergone an ECG and colonoscopy. EGD revealed distal esophagitis and gastritis, and biopsies were sent for Helicobacter pylori. The colonoscopy revealed diverticulosis and anastomosis at 10 cm from the anal verge that was intact. The pathology from the EGD did not reveal any evidence of celiac sprue or Helicobacter organisms. PAST MEDICAL HISTORY 1. Recurrent small-bowel obstruction. 2. Prediabetes. 3. Hypertension. 4. Multiple abdominal surgeries. HOME MEDICATIONS 1. Acetaminophen 500 mg every 6 hours p.r.n. pain. 2. Vitamin D3 400 units daily. 3. [place]ville-3 fish oil 1000 mg daily. FAMILY HISTORY: Mother with hypertension. Father with type 2 diabetes mellitus and hypothyroidism. SURGICAL HISTORY 1. Colonic resection with diverting colostomy placement in 2008. 2. Colostomy reversal in 2010. 3. Breast lesion resection twice (both benign). 4. Laparoscopic cholecystectomy. 5. Bilateral oophorectomy resulting in colonic perforation in 2008 ( this incident resulted in colonic resection and colostomy placement). SOCIAL HISTORY: The woman is single and she lives with her sister and [id number]. No history of tobacco or alcohol use. The patient is currently unemployed. ALLERGIES 1. PENICILLIN. 2. SULFA. PHYSICAL EXAMINATION GENERAL: She is awake, alert and fully oriented. She is very pleasant and cooperative on exam. VITALS: Height is 5 feet 3 inches, weight is 136 pounds, BMI is 24. Blood pressure 138/62, pulse 58, respiratory rate is 18, temperature 97, oxygen saturation 98% on room air. INTEGUMENT: Skin is warm and dry. No pallor, jaundice or diaphoresis. HEENT: Anicteric sclerae. Moist mucous membranes. The patient has an NG tube in place. NECK: Supple. CARDIOVASCULAR: Regular rate and rhythm with an S4 gallop. LUNGS: No rales. No rhonchi or wheezes. ABDOMEN: Soft. Normal bowel sounds. Nontender. EXTREMITIES: No edema or deformities. NEUROLOGIC: Intact. IMPRESSION 1. Small-bowel obstruction. 2. Ventral hernia. 3. Recurrent episodes of small-bowel obstruction. 4. History of multiple abdominal surgeries. 5. Hypertension. PLAN 1. Nothing by mouth. 2. Keep nasogastric tube in place. 3. Appreciate surgical consult. 4. Follow electrolytes. 5. Follow up clinically. 6. Will order serial abdominal x-rays. I spent 40 minutes in the care of this patient. Job#: [id number] RAMÓN
--- NOTE | 2018-09-26 10:41 | NUR ---
EDUCATED ABOUT IMM, SIGNED, FILED IN CHART, WITH COPY LEFT WITH FAMILY AT BEDSIDE.
--- NOTE | 2018-09-26 13:45 | NUR ---
CASE MANAGEMENT ASSESSMENT Production Support Manager to bedside to discuss plan of care with patient/family. CM/SW role and care transitions discussed. Anticipated discharge plan discussed along with duration of care. CM/SW discussed patients right to make decisions in care. CM/SW work hours given. Sister Meeta Dinh at bedside, pt directed CM to speak to her sister Patient lives: with sister Admit/Transfer: thru ED Hospital/ER visits since last admit: last hospitalization May 2018 for SBO POA/Emergency contact: sister Meeta Dinh [phone], brother Bobby Dinh [phone] Current/Previous Home Health: none PCP/Follow-up Care: Dr. Freedman - pt advised to follow up with PCP within 7 days or as instructed by Current/Previous DME: walker, wheelchair Medications (referring to index hospitalization or the first time you were in the hospital) a. Were changes made in your medications when you were in the hospital on May 2018? no changes b. Did you understand the changes? n/a c. Were you able to obtain your new medications right away? n/a d. Were you able to take your medications like the doctor wanted you to? n/a e. Did the hospital give you an accurate, easy to understand list of medications when you left? n/a Scale of 1-10 how comfortable does patient feel with disease management in outpatient settin Other Services: none Employment Status: unemployed Areas of Concerns: none Referral Needs: none Education Needs: medical management IMM/AGUILA given and signed (if applicable): IMM was given Goal for discharge: home independently CM/SW left business card at the bedside with contact information. Name and number was also written on the patients whiteboard. Patient verbalized understanding of discussion. CM will follow-up with ongoing discharge and transition of care needs.
--- NOTE | 2018-09-26 17:38 | NUR ---
md alexis johnson rounded this afternoon. told pt she will have abd sx on wednesday. no orders on computer yet.
[2018-09-27] VITALS (7 sets, daily range): BP systolic 131–156; BP diastolic 59–68
[2018-09-27] MEDS: D5.45%NS/KCL 20MEQ 1,000 ML IV SCH ×4 (00:35→21:02)
[2018-09-27 06:23] LABS: BASOPHILS % 0.5 % (0.0-1.0); EOSINOPHILS # (AUTO) 0.1 (0.0-0.4); EOSINOPHILS % 1.4 % (0.0-6.0); HEMATOCRIT 39.3 % (34.2-44.1); HEMOGLOBIN 12.7 g/dL (12.0-16.0); LYMPHOCYTES # (AUTO) 1.5 (1.0-3.2); LYMPHOCYTES % 24.5 % (18.0-39.1); MEAN CORPUSCULAR HEMOGLOBIN 29.7 pg (28-32); MEAN CORPUSCULAR HGB CONC 32.3 g/dL (31-35); MONOCYTES # (AUTO) 0.5 (0.2-0.8); MONOCYTES % 7.6 % (4.4-11.3); NEUTROPHILS # (AUTO) 4.1 (2.1-6.9); NEUTROPHILS % 65.8 % (38.7-80.0); PLATELET COUNT 327 x10e3/uL (140-360); RED BLOOD COUNT 4.27 x10e6/uL (3.6-5.1)
--- NOTE | 2018-09-27 06:54 | NUR ---
REPORT GIVEN TO ONCOMING NURSE.PT WENT FOR XRAY AT THIS TIME IN STABLE CONDITION.
[2018-09-27 07:16] LABS: ALANINE AMINOTRANSFERASE 12 IU/L (0-55); ALBUMIN 3.4 g/dL (3.5-5.0); ALBUMIN/GLOBULIN RATIO 1.1 (0.8-2.0); ALKALINE PHOSPHATASE 51 IU/L (40-150); ANION GAP 11.2 mmol/L (8-16); BLOOD UREA NITROGEN 5 mg/dL (7-26); BUN/CREATININE RATIO 7 (6-25); CARBON DIOXIDE 26 mmol/L (22-29); CHLORIDE 108 mmol/L (98-107); EST GLOMERULAR FILTRATION RATE > 60 ML/MIN (60-); GLUCOSE 131 mg/dL (74-118); POTASSIUM 4.2 mmol/L (3.5-5.1); SODIUM 141 mmol/L (136-145)
--- NOTE | 2018-09-27 07:28 | Diagnostic Imaging Report ---
Exam: KUB - 2 views Clinical History: Small bowel obstruction Comparison: KUB 09/26/18. DISCUSSION: Enteric tube tip is unchanged, projecting over the gastric body. Non-specific bowel gas pattern with paucity of air in the small bowel. Small amount of air and stool is seen in the proximal colon. No evidence of pneumoperitoneum. No abnormal calcifications. No acute osseous abnormality. IMPRESSION: Stable appearance of enteric tube, with the tip projecting over the gastric body. Non-specific bowel gas pattern with paucity of air in the small bowel. Signed by: Dr. Nelson Johnosn MD on 09/27/2018 7:25 AM
[2018-09-27] MEDS: CHLORASEPTIC SPRAY 177 ML BTL MM PRN (08:37)
[2018-09-27] MEDS: PANTOPRAZOLE 40 MG 10ML VIAL IV SCH (08:37)
[2018-09-27] MEDS: CEFOXITIN 1GM/ NS 50ML 50 ML IV SCH (18:22)
[2018-09-28] VITALS: BP 131/61
[2018-09-28] MEDS: CEFOXITIN 1GM/ NS 50ML 50 ML IV SCH ×3 (00:08→12:00)
[2018-09-28 04:00] VITALS: BP 132/63
[2018-09-28] MEDS: D5.45%NS/KCL 20MEQ 1,000 ML IV SCH (05:25)
[2018-09-28] MEDS ORDERED: BACITRACIN 50,000 UNIT VIAL ONE ×2 (06:59→09:37)
[2018-09-28] MEDS ORDERED: BUPIVACAINE 0.5%/EPI 30 ML SDV INJ ONE (06:59)
[2018-09-28] MEDS ORDERED: BUPIVACAINE LIPOSOME/PF 266 MG/20 ML IJ ONE (07:00)
--- NOTE | 2018-09-28 07:00 | NUR ---
PT TO OR AT THIS TIME.
--- NOTE | 2018-09-28 07:00 | NUR ---
Pt taken to surgery at this time in stable condition.report given to oncoming nurse.
[2018-09-28] MEDS: PANTOPRAZOLE 40 MG 10ML VIAL IV SCH ×2 (09:00→14:24)
[2018-09-28] MEDS ORDERED: HYDROMORPHONE 2MG/ML 2 MG/ML ML ONE (09:42)
--- NOTE | 2018-09-28 10:18 | NUR ---
WENT TO SEE PT, IN PROCEDURE UNABLE TO REMIND ABOUT IMM AT TIME, LEFT COPY AT BEDSIDE WILL RETURN LATER TO GET SIGNATURE.
[2018-09-28] MEDS ORDERED: NEOSTIGMINE 1 MG/ML 10ML VIAL ONE (12:25)
[2018-09-28] MEDS ORDERED: SODIUM CHLORIDE 0.9% 250ML IRRIG IR SCH (12:45)
[2018-09-28] MEDS ORDERED: KETOROLAC TROMETHAMINE 30 MG/ML VIAL IV PRN (12:45)
[2018-09-28] MEDS ORDERED: NALOXONE HCL INJ 0.4 MG/ML AMP IV PRN (12:45)
[2018-09-28] MEDS ORDERED: HYDROMORPHONE 0.2MG/ML-SOD CHL 30ML PCA SYRINGE IV PRN (12:45)
[2018-09-28] MEDS ORDERED: ONDANSETRON HCL INJ 2MG/ML 2ML 2 MG/ML VIAL IV PRN (12:45)
[2018-09-28] MEDS ORDERED: ACETAMINOPHEN 1000 MG/100 ML IV PRN (12:45)
[2018-09-28] MEDS ORDERED: HYDROMORPHONE 0.2MG/ML-SOD CHL 30ML PCA SYRINGE IV ONE (13:06)
--- NOTE | 2018-09-28 14:10 | NUR ---
RECEIVED PT RETURNING FROM PROCEDURE. PT DROWSY EASY TO WAKE ANSWERS QUESTIONS APPROPRIATELY. NGT CONNECTED TO CLWS. IVF AND ACID SUPERVISOR PUMP CONTINUED PER ORDERS. SCD IN PLACE BILAT. DRESSING TO ABD WITH FOAM TAPE CLEAN DRY AND INTACT. X2 MARILOU NOTED. CALL LIGHT AND ACID SUPERVISOR CONTROL WITHIN REACH. FAMILY AT BEDSIDE. INSTRUCTED TO CALL FOR ASSISTANCE. WILL CONTINUE TO MONITOR.
[2018-09-28] MEDS: DEXTROSE 5%/LACTATED RINGERS 1,000 ML IV SCH (14:23)
[2018-09-28] MEDS: SODIUM CHLORIDE 0.9% 250ML IRRIG IR SCH ×3 (14:24→20:59)
--- NOTE | 2018-09-28 14:24 | Operative Report ---
DATE OF PROCEDURE: 09/27/2018 PREOPERATIVE DIAGNOSES: Ventral hernias with recurrent small bowel obstruction episodes, multiple previous abdominal surgeries. POSTOPERATIVE DIAGNOSES: Ventral hernia x3, adhesions, resolved small bowel obstruction. PROCEDURE PERFORMED: Scar revision, exploratory laparotomy, extensive lysis of adhesions, repair of ventral hernias including a stomal hernia with bilateral component relaxation and placement of mesh. ANESTHESIA: General endotracheal. ESTIMATED BLOOD LOSS: 200 to 300 mL. DRAINS: 10 mL Allen-Webb drain. INDICATION AND FINDINGS: The patient is a pleasant 63-year-old female with several admissions for small bowel obstructions. Because of this, she was scheduled for surgery. Preoperatively, she understood as well as the family that this would be a long difficult procedure and the complications such as infection, recurrent mesh infection, blood clot, and pneumonia could occur, but given the fact that she was having recurrent episodes some of which were associated with partial closed loop obstruction, it was decided to proceed with the repair. This patient preoperatively had had two CAT scans that revealed two ventral hernias with obstruction and possibly closed loop obstruction. The hernias were located one slightly above the umbilicus, the other one was located inferior to the umbilicus along the midline from previous Greyson procedure as well as colostomy closure in the past. The patient also had undergone laparoscopic cholecystectomy in the past. Neither of her CAT scans previously performed revealed the stomal hernia at the colostomy site in the left medial aspect of the abdomen. During the dissection of the soft tissues of the left side of the midline in order to relax the rectus to allow closure of the fascia, we found that she had herniation of the colon through the colostomy site. At this point, we had to go lateral to that and then relax the external oblique aponeurosis to be able to close the wound without any difficulties, on the right side we relaxed the rectus sheath. The stomal hernia was closed initially by placement of PVP Ethicon Proceed ventral patch in the preperitoneal space, and then over that after the fascia was closed, we placed polypropylene mesh to cover the entire abdominal wall. DESCRIPTION OF PROCEDURE: With the patient lying on the operation table in the supine position, after administration of general endotracheal anesthesia, she was given prophylactic antibiotics. A Alexis was placed and prepped and draped for exploratory laparotomy as previously described. The old incision was somewhat hypertrophic and we excised that completely revising the scar, and then we continued the dissection through the subcutaneous tissue. We identified the two hernias previously described on the CAT scan, one slightly superior to the umbilicus, the other one inferior to that. We performed extensive lysis of adhesions until we were able to clear the abdominal wall from any adhesions as well as internal adhesions and then we were able to place the sutures to secure the mesh. There were two defects, and I felt that it would be easier and better for the patient to connect the two defects and create a large one since they were close to each other to allow access to intraabdominal cavity. After we did that, we completed the dissection of the multiple lysis of adhesions. We excised the attenuated fascia and then we closed the wound by approximating fascia to fascia. There was tension in the closure and we decided to secure a better closure to relax the rectus muscle with a component relaxation. As we were dissecting the soft tissues on the left side of the midline, we came at the level of the colostomy site over the rectus sheath where there was herniation of the colon. This was not suspected. At this point, we reduced the herniation of the colon into the preperitoneal space and then we relaxed the external oblique aponeurosis lateral to the defect. We then placed a PVP small size Ethicon mesh in the preperitoneal space laying it flat against abdominal wall and secured there through the strap with 2-0 Ethibond suture. We then closed the fascia loosely without any problems over that and then this defect was closed with polypropylene mesh. The rectus sheath was relaxed on the right side and then we placed a polypropylene mesh 12 inches sq, cut to appropriate length to cover the entire abdominal wall as well as the previously placed mesh in the stoma site. We secured the mesh initially with several 0-Ethibond sutures. The mesh was laid flat against the primary closure. We placed several 2-0 Ethibond sutures around the periphery of the stoma repair, copiously irrigated the abdominal cavity, copiously irrigated the wound prior to closure as we had also done with intraabdominal cavity. We ascertained that prior to closure of the fascia that there was no evidence of bleeding or bowel injury, none was seen. We drained the wound with 2 Allen-Webb drains that were crisscrossed and brought out through stab wound inferior to the incision and secured them with 2-0 silk, connected it to self suction. We closed the subcutaneous tissues with a combination of 0 chromic and 2-0 Vicryl and the skin was closed with 0 silk and 3-0 silk. Sterile dressing was applied. We put 10 mL of Xylocaine solution on each drain and clamped it for [id number] and then reconnected it to self suction. The patient tolerated the procedure well, was taken to recovery room in stable condition. Sponge and instrument counts were pronounced correct. As previously stated at the end of the case, the daughter was informed of intraoperative findings. MD SANTOSH Latif/SUMIT /[id number]
[2018-09-28] MEDS ORDERED: EPHEDRINE SULFATE INJ 50 MG/10 ML SYR ONE (14:41)
[2018-09-28] MEDS ORDERED: KETOROLAC TROMETHAMINE 30 MG/ML VIAL ONE (14:41)
[2018-09-28] MEDS ORDERED: LIDOCAINE HCL 2% LOCAL INJ 5 ML SDV VIAL INJ ONE (14:41)
[2018-09-28] MEDS ORDERED: PROPOFOL IV EMULSION 10 MG/ML 20 ML VIAL ONE (14:41)
[2018-09-28] MEDS ORDERED: SEVOFLURANE INHAL SOLN 250 ML PEN BTL ONE (14:41)
[2018-09-28] MEDS ORDERED: CEFAZOLIN SOD 1 GM VIAL ONE (14:41)
[2018-09-28] MEDS ORDERED: NEOSTIGMINE 5 MG/5ML SYR ONE (14:41)
[2018-09-28] MEDS ORDERED: ONDANSETRON HCL INJ 2MG/ML 2ML 2 MG/ML VIAL ONE (14:41)
[2018-09-28] MEDS ORDERED: ACETAMINOPHEN 1000 MG/100 ML IV ONE (14:41)
[2018-09-28] MEDS ORDERED: DEXAMETHASONE SOD PHOS INJ 4 MG/ML VIAL ONE (14:41)
[2018-09-28] MEDS ORDERED: ROCURONIUM BROMIDE 10 MG/ML 5ML VIAL ONE (14:41)
[2018-09-28] MEDS ORDERED: GLYCOPYRROLATE INJ 1MG/ 5 ML SYR ONE (14:41)
[2018-09-28] MEDS ORDERED: MIDAZOLAM HCL 2 MG/2 ML VIAL ONE (14:44)
[2018-09-28] MEDS ORDERED: FENTANYL CITRATE/PF 100MCG/2 ML INJ ONE (14:44)
[2018-09-28] MEDS: CEFAZOLIN SOD 1 GM/NS 50ML 50 ML IV SCH (17:41)
[2018-09-28 17:42] VITALS: BP 142/64
[2018-09-28 17:55] VITALS: BP 142/64
--- NOTE | 2018-09-28 19:35 | NUR ---
patient received. patient is resting in bed, easy to arouse. Resp even and unlabored. No acute distress noted. Patient denies of any pain or discomfort at this time. Abdominal dressing noted, dry and intact, abdominal binder noted. NG tube to right nare connected to CLWS. IV fluid and TRADE RECRUITER pump noted. call light and TRADE RECRUITER control within reach. instruct to call for assistance. bed low/locked. continue to monitor closely
[2018-09-28 20:00] VITALS: BP 115/53
[2018-09-29] VITALS (11 sets, daily range): BP systolic 115–159; BP diastolic 53–70
[2018-09-29] MEDS: DEXTROSE 5%/LACTATED RINGERS 1,000 ML IV SCH
[2018-09-29] MEDS: SODIUM CHLORIDE 0.9% 250ML IRRIG IR SCH ×6 (00:43→21:10)
[2018-09-29] MEDS: CEFAZOLIN SOD 1 GM/NS 50ML 50 ML IV SCH ×4 (04:58→17:36)
[2018-09-29 05:48] LABS: BASOPHILS % 0.1 % (0.0-1.0); HEMATOCRIT 31.8 % (34.2-44.1); HEMOGLOBIN 10.6 g/dL (12.0-16.0); LYMPHOCYTES # (AUTO) 1.6 (1.0-3.2); LYMPHOCYTES % 13.5 % (18.0-39.1); MEAN CORPUSCULAR HGB CONC 33.3 g/dL (31-35); MEAN CORPUSCULAR VOLUME 90.1 fL (81-99); MONOCYTES % 8.2 % (4.4-11.3); NEUTROPHILS # (AUTO) 9.3 (2.1-6.9); NEUTROPHILS % 77.9 % (38.7-80.0); PLATELET COUNT 274 x10e3/uL (140-360); RED BLOOD COUNT 3.53 x10e6/uL (3.6-5.1)
[2018-09-29 06:13] LABS: ALANINE AMINOTRANSFERASE 46 IU/L (0-55); ALBUMIN 2.8 g/dL (3.5-5.0); ALBUMIN/GLOBULIN RATIO 0.9 (0.8-2.0); ALKALINE PHOSPHATASE 46 IU/L (40-150); ANION GAP 11.6 mmol/L (8-16); BLOOD UREA NITROGEN 7 mg/dL (7-26); BUN/CREATININE RATIO 10 (6-25); CALCIUM 8.7 mg/dL (8.4-10.2); CARBON DIOXIDE 25 mmol/L (22-29); CHLORIDE 105 mmol/L (98-107); CREATININE, SERUM 0.68 mg/dL (0.57-1.11); EST GLOMERULAR FILTRATION RATE > 60 ML/MIN (60-); GLUCOSE 116 mg/dL (74-118); POTASSIUM 3.6 mmol/L (3.5-5.1); SODIUM 138 mmol/L (136-145)
[2018-09-29] MEDS: D5.45%NS/KCL 20MEQ 1,000 ML IV SCH ×2 (09:02→17:35)
--- NOTE | 2018-09-29 09:02 | NUR ---
ASSISTED PT TO SIT IN CHAIR AT THIS TIME. CALL LIGHT AND PIERCING MILL OPERATOR CONTROL WITHIN REACH. INSTRUCTED TO CALL FOR ASSISTANCE.
--- NOTE | 2018-09-29 10:13 | NUR ---
PT ASSISTED BACK TO BED. MITER GRINDER OPERATOR CONTROL AND CALL LIGHT WITHIN REACH.
[2018-09-29] MEDS ORDERED: SODIUM CHLORIDE 0.9% 1000ML 1,000 ML IV SCH (12:45)
[2018-09-29] MEDS: PANTOPRAZOLE 40 MG 10ML VIAL IV SCH (14:16)
--- NOTE | 2018-09-29 15:19 | NUR ---
PT SAT IN CHAIR FOR ABOUT 30 MINUTES THEN AMBULATED IN HALLWAY. ASSISTED BACK TO BED. CALL LIGHT AND COMPUTER SOFTWARE ENGINEER CONTROL WITHIN REACH. BED LOCKED AND IN LOWEST POSITION. INSTRUCTED TO CALL FOR ASSISTANCE.
--- NOTE | 2018-09-29 22:50 | NUR ---
left hand IV infiltrated. D/c IV, left hand elevated. Start new IV to left AC. Patient tolerated well. Iv fluid infusing
[2018-09-30] VITALS (8 sets, daily range): BP systolic 124–135; BP diastolic 58–62
[2018-09-30] MEDS: D5.45%NS/KCL 20MEQ 1,000 ML IV SCH ×3 (00:48→15:12)
[2018-09-30] MEDS: CEFAZOLIN SOD 1 GM/NS 50ML 50 ML IV SCH ×4 (00:48→17:14)
[2018-09-30] MEDS: SODIUM CHLORIDE 0.9% 250ML IRRIG IR SCH ×6 (01:10→21:42)
[2018-09-30 05:26] LABS: BASOPHILS % 0.3 % (0.0-1.0); EOSINOPHILS % 0.2 % (0.0-6.0); HEMOGLOBIN 10.5 g/dL (12.0-16.0); LYMPHOCYTES # (AUTO) 1.7 (1.0-3.2); LYMPHOCYTES % 16.9 % (18.0-39.1); MEAN CORPUSCULAR HEMOGLOBIN 29.8 pg (28-32); MEAN CORPUSCULAR HGB CONC 32.8 g/dL (31-35); MEAN CORPUSCULAR VOLUME 90.9 fL (81-99); MONOCYTES # (AUTO) 0.8 (0.2-0.8); MONOCYTES % 7.8 % (4.4-11.3); NEUTROPHILS # (AUTO) 7.6 (2.1-6.9); NEUTROPHILS % 74.5 % (38.7-80.0); PLATELET COUNT 263 x10e3/uL (140-360); RED BLOOD COUNT 3.52 x10e6/uL (3.6-5.1); RED CELL DISTRIBUTION WIDTH 13.2 % (11.7-14.4)
[2018-09-30 05:55] LABS: ALANINE AMINOTRANSFERASE 29 IU/L (0-55); ALBUMIN 2.7 g/dL (3.5-5.0); ALBUMIN/GLOBULIN RATIO 0.8 (0.8-2.0); ALKALINE PHOSPHATASE 52 IU/L (40-150); ANION GAP 10.9 mmol/L (8-16); BLOOD UREA NITROGEN < 5 mg/dL (7-26); CALCIUM 9.1 mg/dL (8.4-10.2); CARBON DIOXIDE 29 mmol/L (22-29); CHLORIDE 104 mmol/L (98-107); EST GLOMERULAR FILTRATION RATE > 60 ML/MIN (60-); GLUCOSE 131 mg/dL (74-118); POTASSIUM 3.9 mmol/L (3.5-5.1); SODIUM 140 mmol/L (136-145)
[2018-09-30 05:56] LABS: BUN/CREATININE RATIO 7 (6-25)
--- NOTE | 2018-09-30 06:15 | NUR ---
D/C WOODALL PER MD ORDER. PATIENT IS DUE TO VOID
--- NOTE | 2018-09-30 06:45 | NUR ---
ASSISTED PATIENT TO BSC. PATIENT VOIDED
--- NOTE | 2018-09-30 07:11 | NUR ---
Rcvd patient in report this am. Patient is awake in chair at this time. No s/s of distress noted.
[2018-09-30] MEDS ORDERED: POTASSIUM CHLORIDE 20MEQ/100ML 100 ML IV ONE (08:00)
--- NOTE | 2018-09-30 09:25 | Diagnostic Imaging Report ---
EXAM: CHEST SINGLE (PORTABLE), AP Portable DATE: 09/30/2018 Time stamp on exam: 7:41 AM INDICATION: Fever and cough COMPARISON: 05/29/2018 FINDINGS: LINES/TUBES: Nasogastric tube extends below the diaphragm. LUNGS: Linear subsegmental atelectasis in the left perihilar region is present. Focal increased density in the right upper lobe may represent a developing infiltrate. This was not present on the prior study. PLEURA: No effusions or pneumothorax. HEART AND MEDIASTINUM: Normal size and contour. BONES AND SOFT TISSUES: No acute findings. IMPRESSION: Focal increased density in the right upper lobe suggestive of an early infiltrate. Signed by: Dr. Rl Hannon DO on 09/30/2018 9:22 AM
[2018-09-30] MEDS: PANTOPRAZOLE 40 MG 10ML VIAL IV SCH (13:16)
--- NOTE | 2018-09-30 15:57 | NUR ---
Nutrition Screen Note RD Recommendation for Physician: -Rec advancing to GI soft/ ADA diet as medically appropriate -If GI tract is not ok to use within the next 48hr, rec to initiate PN -Consult RD if needed Plan of Care: RD following, monitoring for tolerance and adequacy Nutrition reason for involvement: NPO x 5 days Primary Diagnose(s): SBO PMH: recurrent SBO, ventral hernia, prediabetes, HTN, multiple abdominal surgeries, HTN Ht: 63in Wt: 144.31lb BMI: 25.6kg/m2 IBW: 115lb RD Assessment: (09/30) Chart reviewed. Labs and meds reviewed. 63yo F, who was admitted for abdominal pain. S/p ex-lap and hernia repair on 09/28. POD 2. Visited pt in room who denied significant wt loss, denied decrease in appetite MAGNETIC PROSPECTING SUPERVISOR. Pt denied chewing/swallowing problems and nausea/vomiting. NGT on suction with green drainage. Pt stated I feel my guts are moving but I havent had any BM or gas yet. Pt also reported feeling hungry and eager to advance her diet. Anticipate pt able to meet nutritional need through po intake when diet is advanced. Will cont to monitor. Please consult as needed. Current Diet: NPO x 5 days Malnutrition Evaluation (09/30/2018) The patient does not meet criteria for a specified degree of malnutrition at this time. Will re-evaluate at follow-up as appropriate. Energy intake: <50% of estimated energy requirements for >5 days Weight loss: N/A Fat loss: None Muscle loss: None Supporting Evidence: Fluid accumulation: n/a Functional Status: no changes Diet Education Needs Assessment: Diet education not indicated. Nutrition Care Level: mod Signed: Wendy Lucas, MS, RD, LD
--- NOTE | 2018-09-30 19:01 | NUR ---
RECEIVED PATIENT IN BED AAOX3. NGT TO SUCTION. INSPECTOR CASING PAIN CONTROL BUTTON WITHIN EASY REACH. NO NEEDS AT THIS TIME. CALL LIGHT WITHIN EASY REACH.
--- NOTE | 2018-09-30 20:10 | NUR ---
ASSISTED PATIENT TO BSC.
[2018-10-01] VITALS (8 sets, daily range): BP systolic 131–143; BP diastolic 60–65
[2018-10-01] MEDS: CEFAZOLIN SOD 1 GM/NS 50ML 50 ML IV SCH ×5 (00:22→23:54)
[2018-10-01] MEDS: D5.45%NS/KCL 20MEQ 1,000 ML IV SCH ×4 (00:22→19:44)
[2018-10-01] MEDS: SODIUM CHLORIDE 0.9% 250ML IRRIG IR SCH ×6 (00:30→19:44)
[2018-10-01 09:42] LABS: BLOOD UREA NITROGEN < 5 mg/dL (7-26); CALCIUM 10.1 mg/dL (8.4-10.2); CARBON DIOXIDE 28 mmol/L (22-29); CHLORIDE 102 mmol/L (98-107); CREATININE, SERUM 0.69 mg/dL (0.57-1.11); EST GLOMERULAR FILTRATION RATE > 60 ML/MIN (60-); GLUCOSE 144 mg/dL (74-118); SODIUM 139 mmol/L (136-145)
[2018-10-01 09:44] LABS: BUN/CREATININE RATIO 7 (6-25)
--- NOTE | 2018-10-01 12:04 | NUR ---
FIELD SERVICE ANALYST PUMP DC. WITNESS WAIST WITH ZULLY. PT REPORTS NO PAIN AT THIS TIME.
[2018-10-01] MEDS: HYDROMORPHONE 2MG/ML 2 MG/ML ML IV PRN ×2 (15:13→21:37)
[2018-10-01] MEDS: PANTOPRAZOLE 40 MG 10ML VIAL IV SCH (15:13)
[2018-10-01] MEDS ORDERED: MINOCYCLINE HCL50 MG PO (15:24)
--- NOTE | 2018-10-01 21:23 | NUR ---
NGT REMOVED PER ORDERS, TUBE INTACT. PATIENT TOLERATED PROCEDURE WELL. SOME DISCOMFORT VOICED, PRN PAIN MEDICATION ADMINISTERED. INSTRUCTED PATIENT TO NOTIFY RN IF NAUSEA OR VOMITING OCCURS, PATIENT VERBALIZED UNDERSTANDING. BED LOCKED AND IN LOWEST POSITION, CALL LIGHT WITHIN EASY REACH. WILL CONTINUE TO MONITOR THE PATIENT CLOSELY.
[2018-10-01] MEDS: BISACODYL 10 MG SUPP PR SCH (21:34)
[2018-10-02] VITALS (8 sets, daily range): BP systolic 106–134; BP diastolic 53–62
[2018-10-02] MEDS: SODIUM CHLORIDE 0.9% 250ML IRRIG IR SCH ×2 (01:00→05:00)
[2018-10-02] MEDS: CEFAZOLIN SOD 1 GM/NS 50ML 50 ML IV SCH ×3 (05:15→17:34)
[2018-10-02] MEDS: D5.45%NS/KCL 20MEQ 1,000 ML IV SCH ×2 (05:15→16:38)
[2018-10-02 06:05] LABS: BASOPHILS % 0.3 % (0.0-1.0); EOSINOPHILS # (AUTO) 0.1 (0.0-0.4); HEMATOCRIT 31.5 % (34.2-44.1); HEMOGLOBIN 10.4 g/dL (12.0-16.0); LYMPHOCYTES # (AUTO) 1.5 (1.0-3.2); LYMPHOCYTES % 23.9 % (18.0-39.1); MEAN CORPUSCULAR HEMOGLOBIN 29.9 pg (28-32); MEAN CORPUSCULAR VOLUME 90.5 fL (81-99); MONOCYTES # (AUTO) 0.6 (0.2-0.8); MONOCYTES % 8.7 % (4.4-11.3); NEUTROPHILS # (AUTO) 4.2 (2.1-6.9); NEUTROPHILS % 64.8 % (38.7-80.0); PLATELET COUNT 331 x10e3/uL (140-360); RED BLOOD COUNT 3.48 x10e6/uL (3.6-5.1); RED CELL DISTRIBUTION WIDTH 12.8 % (11.7-14.4)
[2018-10-02 06:26] LABS: ANION GAP 8.8 mmol/L (8-16); BLOOD UREA NITROGEN 5 mg/dL (7-26); BUN/CREATININE RATIO 9 (6-25); CALCIUM 8.9 mg/dL (8.4-10.2); CARBON DIOXIDE 27 mmol/L (22-29); CHLORIDE 106 mmol/L (98-107); CREATININE, SERUM 0.57 mg/dL (0.57-1.11); EST GLOMERULAR FILTRATION RATE > 60 ML/MIN (60-); GLUCOSE 130 mg/dL (74-118); POTASSIUM 3.8 mmol/L (3.5-5.1); SODIUM 138 mmol/L (136-145)
[2018-10-02] MEDS: BISACODYL 10 MG SUPP PR SCH ×2 (08:15→21:37)
[2018-10-02] MEDS: CHLORASEPTIC SPRAY 177 ML BTL MM PRN (13:09)
[2018-10-02] MEDS: PANTOPRAZOLE 40 MG 10ML VIAL IV SCH (14:13)
--- NOTE | 2018-10-02 14:50 | NUR ---
Visit made by the Spiritual Care Department Pastoral Visitor, Raul Herron. PV provided pastoral presence, hospitality, and supportive listening. Pastoral Visitor informed pt/family of the scope of Floor Sweeper Services and availability. ARCHIE CABRERA Aerial Planting And Cultivation Manager Spiritual Care Department O: [phone] Pager: [phone] ([phone] number calling from)
--- NOTE | 2018-10-02 23:15 | NUR ---
PATIENT C/O BURNING SENSATION TO THE IV SITE, IV REMOVED WITH TIP INTACT. IV #20 GAUGE INSERTED TO THE RIGHT AC, PROCEDURE TOLERATED WELL, IV FLUID INFUSING ORDERED. PATIENT DENIES ABDOMINAL PAIN, CALL LIGHT WITHIN EASY REACH, SHE'S INSTRUCTED TO CALL FOR ASSISTANCE NEEDED.
[2018-10-03] VITALS (7 sets, daily range): BP systolic 106–129; BP diastolic 53–60
[2018-10-03] MEDS: CEFAZOLIN SOD 1 GM/NS 50ML 50 ML IV SCH ×4 (00:19→16:52)
[2018-10-03] MEDS: D5.45%NS/KCL 20MEQ 1,000 ML IV SCH (03:45)
--- NOTE | 2018-10-03 03:50 | NUR ---
PATIENT ASSISTED TO THE RESTROOM, SHE'S INSTRUCTED TO CALL FOR ASSISTANCE UPON COMPLETION SO THAT SHE CAN BE ASSISTED BACK TO BED.
[2018-10-03 06:28] LABS: BASOPHILS % 0.8 % (0.0-1.0); EOSINOPHILS # (AUTO) 0.2 (0.0-0.4); EOSINOPHILS % 3.6 % (0.0-6.0); HEMATOCRIT 31.9 % (34.2-44.1); HEMOGLOBIN 10.3 g/dL (12.0-16.0); LYMPHOCYTES # (AUTO) 1.6 (1.0-3.2); LYMPHOCYTES % 29.7 % (18.0-39.1); MEAN CORPUSCULAR HEMOGLOBIN 29.4 pg (28-32); MEAN CORPUSCULAR HGB CONC 32.3 g/dL (31-35); MEAN CORPUSCULAR VOLUME 91.1 fL (81-99); MONOCYTES # (AUTO) 0.5 (0.2-0.8); NEUTROPHILS # (AUTO) 2.9 (2.1-6.9); NEUTROPHILS % 55.5 % (38.7-80.0); PLATELET COUNT 357 x10e3/uL (140-360); RED CELL DISTRIBUTION WIDTH 12.7 % (11.7-14.4)
[2018-10-03 06:52] LABS: BLOOD UREA NITROGEN < 5 mg/dL (7-26); CALCIUM 9.7 mg/dL (8.4-10.2); CARBON DIOXIDE 25 mmol/L (22-29); CHLORIDE 105 mmol/L (98-107); CREATININE, SERUM 0.58 mg/dL (0.57-1.11); EST GLOMERULAR FILTRATION RATE > 60 ML/MIN (60-); GLUCOSE 136 mg/dL (74-118); SODIUM 137 mmol/L (136-145)
[2018-10-03 06:57] LABS: BUN/CREATININE RATIO 9 (6-25)
[2018-10-03] MEDS: BISACODYL 10 MG SUPP PR SCH (08:00)
[2018-10-03] MEDS ORDERED: HYDROMORPHONE 2MG/ML 2 MG/ML ML IV PRN (09:30)
[2018-10-03] MEDS ORDERED: HYDROCODONE/APAP 7.5MG-325MG 1 EA TAB PO PRN (09:30)
[2018-10-03] MEDS ORDERED: BISACODYL 10 MG SUPP PR ONE (10:00)
--- NOTE | 2018-10-03 10:01 | NUR ---
EDUCATED ABOUT IMM, SIGNED, FILED IN CHART, WITH COPY LEFT WITH FAMILY AT BEDSIDE.
[2018-10-03] MEDS: PANTOPRAZOLE 40 MG 10ML VIAL IV SCH (14:04)
[2018-10-04] VITALS: BP 114/53
[2018-10-04] MEDS: CEFAZOLIN SOD 1 GM/NS 50ML 50 ML IV SCH ×3 (00:18→11:37)
--- NOTE | 2018-10-04 00:18 | NUR ---
PATIENT ASSISTED TO THE RESTROOM TO VOID, SHE'S NOW BACK IN BED WITHOUT DISTRESS AND SHE DENIES ABDOMINAL PAIN. CALL LIGHT WITHIN EASY REACH, INSTRUCTED TO CALL FOR ASSISTANCE NEEDED.
[2018-10-04 04:00] VITALS: BP 113/53
--- NOTE | 2018-10-04 05:23 | NUR ---
NO RESPIRATORY DISTRESS OBSERVED, PATIENT DENIES PAIN. SHE'S ASSISTED TO THE RESTROOM TO VOID, SHE'S TOLD TO CALL FOR ASSISTANCE UPON COMPLETION SO THAT SHE CAN BE ASSISTED BACK TO THE BED.
[2018-10-04 08:02] VITALS: BP 130/60
[2018-10-04 09:57] VITALS: BP 130/60
[2018-10-04 13:21] VITALS: BP 113/52
[2018-10-04] MEDS: PANTOPRAZOLE 40 MG 10ML VIAL IV SCH (13:32)
--- NOTE | 2018-10-04 13:32 | NUR ---
RIGHT AC IV D/C AND PRESSURE DRESSING APPLIED. DISCHARGE INSTRUCTIONS AND PRESCRIPTION GIVEN PT VERBALIZED UNDERSTANDING. PT AWAITING RIDE HOME.
--- NOTE | 2018-10-05 07:16 | Discharge Summary ---
ADMITTING DIAGNOSES: 1. Small bowel obstruction. 2. Ventral hernia. 3. Recurrent episodes of small bowel obstruction from ventral hernias. 4. History of multiple abdominal surgeries. 5. Hypertensive heart disease. DISCHARGE DIAGNOSES: 1. Status post exploratory laparotomy with repair. 2. Ventral hernias as well as extensive lysis of adhesions. 3. Small bowel obstruction, resolved. 4. Prehypertension. HOSPITAL COURSE: This is a 63-year-old woman, who was initially admitted to [facility] with a diagnosis of small bowel obstruction secondary to ventral hernia. The patient actually has a history of recurrent episodes of small bowel obstruction from her ventral hernias and multiple intraperitoneal adhesions. During this hospitalization, she was seen by her general surgeon, Dr. Fredy Montes who performed successful exploratory laparotomy with extensive lysis of adhesions and repair of 3 ventral hernias including the stomal hernia with bilateral component of relaxation and placement of mesh. The patient's hospitalization was unremarkable. Prior to discharge, the patient was tolerating regular diet. One day prior to being discharged, the patient's hemoglobin was 10.3 g/dL. The patient's white blood cell count was 5200 with 55% segmented neutrophils. One day prior to being discharged, the patient's BUN and creatinine was 5 and 0.58 respectively with a potassium of 4.0. The patient's condition on discharge was stable. DISCHARGE MEDICATIONS: Acetaminophen 1000 mg every 6 hours p.r.n. pain or fever. FOLLOWUP INSTRUCTIONS: The patient is instructed to follow up with Dr. Fredy Montes in 1 week and with her primary care physician in 2 weeks. MD TAMERA FloydO/GUADALUPEL /[id number] cc: Fredy Montes MD [facility]
== END 2018-10-04 13:44 | disposition home or self-care (01) | DRG 336 ==
LOC: FSED 16:12 → ERHOLD 21:02 → MED/SURG 22:14
PROVIDERS: ADMIT Internal Medicine; ATTEND Internal Medicine
PROC: 0WUF0JZ Supplement Abdominal Wall with Synthetic Substitute, Open Approach (ICD-10-PCS; principal; 2018-09-27)
PROC: 0DN80ZZ Release Small Intestine, Open Approach (ICD-10-PCS; 2018-09-27)
DX: K56.51 Intestinal adhesions [bands], with partial obstruction (principal); K43.0 Incisional hernia with obstruction, without gangrene; Z90.49 Acquired absence of other specified parts of digestive tract; Z90.710 Acquired absence of both cervix and uterus; Z88.0 Allergy status to penicillin; Z88.2 Allergy status to sulfonamides; I10 Essential (primary) hypertension
CPT/HCPCS: 36415; 71045; 74018; 74019; 74177; 80048; 80053; 81003; 83690; 84484; 85025; 93005; 96367; 99284; C1781; J0690; J1100; J1885; J2001; J2250; J2405; J2710; J3480; J7030

== ENCOUNTER → 2022-12-07 | Outpatient (CLI) | payer MEDICARE, OTHER ==
[~2022-12-07] MED LIST changes: +IOPAMIDOL 370 MG/ML 100 ML INFUS..BTL INJ ONE; +MINOCYCLINE HCL50 MG PO
[2022-12-07 15:13] LABS: CREATININE, SERUM 0.66 mg/dL (0.57-1.11)
== END ==
LOC: CT 14:28
PROVIDERS: ATTEND Internal Medicine
DX: R10.31 Right lower quadrant pain (principal); K35.80 Unspecified acute appendicitis
CPT/HCPCS: 36415; 74177; 82565; 84520; Q9967